=== PATIENT | female | born 1990 | race Caucasian/White ===

== ENCOUNTER 2021-08-10 12:29 | Outpatient (CLI) | payer OTHER, SELFPAY ==
--- NOTE | ~2021-08-10 | US_ITS ---
EXAMINATION: US OB <= 14 weeks fetus DATE: 08/10/2021 13:28 INDICATION: Gestational dating TECHNIQUE: Real-time transabdominal obstetric ultrasound. FINDINGS: No prior studies for comparison. The uterus measures 8.4 x 5.3 x 5 cm. There is an intrauterine gestational sac, with pole ident ified. The crown rump length measures 0.88 cm, which correlates with a estimated gestational age of 6 weeks 6 days. heart tones are identified measuring 124 BPM. Right ovary within normal limit s. Left ovary not visualized. No free fluid in the pelvic cul-de-sac. IMPRESSION: 1. SL IUP with an EGA of 6 weeks, 6 days (EDC by current ultrasound of 03/30/2022). Reviewed, dictated and finalized at location A. MS INVESTIGATOR IMPRESSION: 1. SL IUP with an EGA of 6 weeks, 6 days (EDC by current ultrasound of 2).
== END 2021-08-10 12:30 | disposition home or self-care (01) ==
PROVIDERS: PCP Family Medicine; Visit Provider Student in an Organized Health Care Education/Training Program
DX: Z34.91 Encounter for supervision of normal pregnancy, unspecified, first trimester (principal); Z3A.01 Less than 8 weeks gestation of pregnancy
CPT/HCPCS: 76801

== ENCOUNTER 2021-10-01 08:16 | Outpatient (CLI) | payer OTHER, SELFPAY ==
[2021-10-01 09:20] LABS: Basophils Percent Auto 0.4 % (0.2-1.2); Eosinophils Absolute Auto 0.1 K/mm3 (0-0.3); Eosinophils Percent Auto 0.8 % (0-4.4); Hematocrit 35.3 % (37.0-47.0); Hemoglobin 12.1 g/dL (12.0-15.0); Immature Granulocyte Absolute 0.02 K/mm3 (0.00-0.031); Immature Granulocyte Percent A 0.2 % (0-0.5); Lymphocytes Absolute Auto 1.77 K/mm3 (0.9-3.2); Lymphocytes Percent Auto 21.1 % (18.3-44.2); Mean Corpuscular HGB Conc 34.3 g/dl (32-36); Mean Corpuscular Hemoglobin 29.7 pg (26-34); Mean Corpuscular Volume 86.5 fl (80-100); Mean Platelet Volume 8.6 fl (7.4-10.4); Monocytes Absolute Auto 0.7 K/mm3 (0.1-0.6); Monocytes Percent Auto 8.6 % (2.6-8.5); Neutrophils Absolute Auto 5.8 K/mm3 (1.3-6.7); Neutrophils Percent Auto 68.9 % (45.5-73.1); Platelet Count Result 265 k/mm3 (150-375); Red Blood Count 4.08 M/mm3 (4.2-5.4); Red Cell Distribution Width 12.2 % (11.5-14.5); White Blood Count 8.4 K/mm3 (4.5-10.0)
[2021-10-01 09:31] LABS: HIV 1/2 Ab P24 Ag Result Negative (Negative)
[2021-10-01 09:54] LABS: Add Urine Microscopic? YES; Amorphous Sediment Urine Moderate; Appearance Urine Cloudy (Clear); Bacteria Urine Trace /hpf; Bilirubin Urine Negative (Negative); Blood Urine Negative (Negative); Color Urine Yellow (Yellow); Glucose Urine UA Negative (Negative); Ketones Urine Negative (Negative); Leukocyte Esterase Ur Negative LEU/UL (NEGATIVE); Nitrate Urine Negative (Negative); Protein Urine Negative (Negative); Specific Grav Ur 1.015 (1.001-1.035); Squamous Epithelial Cell Urine Few /hpf (Few); Urobilinogen Urine Negative mg/dL (<2.0)
[2021-10-01 09:55] LABS: Hepatitis B Surface Antigen Negative (Negative)
[2021-10-01 09:56] LABS: Hepatitis C Virus Antibody Negative (Negative)
[2021-10-03 07:21] LABS: Rapid Plasma Reagin Non-Reactive (NonReactive)
[2021-10-06 12:07] LABS: Hemoglobin 12.2 g/dL (11.7-15.5); MCH 29.7 pg (27.0-33.0); MCV 87.6 fL (80.0-100.0); RDW 13.1 % (11.0-15.0); Red Blood Cell Count 4.11 Mill/uL (3.80-5.10)
== END 2021-10-01 08:17 | disposition home or self-care (01) ==
LOC: ANHLAB 08:17
PROVIDERS: PCP Family Medicine; Visit Provider Student in an Organized Health Care Education/Training Program
DX: Z34.90 Encounter for supervision of normal pregnancy, unspecified, unspecified trimester (principal); Z3A.00 Weeks of gestation of pregnancy not specified
CPT/HCPCS: 36415; 81001; 82306; 83021; 84443; 85025; 86592; 86703; 86762; 86787; 86803; 86850; 86900; 86901; 87086; 87088; 87340; G0432

== ENCOUNTER 2021-12-26 15:49 | Outpatient (CLI) | payer OTHER, SELFPAY ==
[2021-12-26 17:25] LABS: Basophils Percent Auto 0.2 % (0.2-1.2); Eosinophils Absolute Auto 0.1 K/mm3 (0-0.3); Eosinophils Percent Auto 0.9 % (0-4.4); Hemoglobin 10.9 g/dL (12.0-15.0); Immature Granulocyte Absolute 0.04 K/mm3 (0.00-0.031); Immature Granulocyte Percent A 0.3 % (0-0.5); Lymphocytes Absolute Auto 2.37 K/mm3 (0.9-3.2); Lymphocytes Percent Auto 18.4 % (18.3-44.2); Mean Corpuscular Hemoglobin 29.5 pg (26-34); Mean Corpuscular Volume 89.2 fl (80-100); Mean Platelet Volume 8.8 fl (7.4-10.4); Monocytes Absolute Auto 1.2 K/mm3 (0.1-0.6); Neutrophils Absolute Auto 9.2 K/mm3 (1.3-6.7); Neutrophils Percent Auto 71.2 % (45.5-73.1); Platelet Count Result 255 k/mm3 (150-375); Red Cell Distribution Width 12.2 % (11.5-14.5); White Blood Count 12.9 K/mm3 (4.5-10.0)
[2021-12-26 17:43] LABS: Glucose 1 Hour PP 50gm Dose 123 mg/dL
== END 2021-12-26 15:50 | disposition home or self-care (01) ==
LOC: ANHLAB 15:50
PROVIDERS: PCP Family Medicine; Visit Provider Student in an Organized Health Care Education/Training Program
DX: Z34.02 Encounter for supervision of normal first pregnancy, second trimester (principal); Z3A.00 Weeks of gestation of pregnancy not specified
CPT/HCPCS: 36415; 82947; 85025

== ENCOUNTER 2022-02-09 10:32 | Outpatient (CLI) | payer OTHER, SELFPAY ==
[2022-02-09 10:45] LABS: Basophils Percent Auto 0.3 % (0.2-1.2); Eosinophils Absolute Auto 0.1 K/mm3 (0-0.3); Eosinophils Percent Auto 1.1 % (0-4.4); Hematocrit 34.9 % (37.0-47.0); Hemoglobin 11.5 g/dL (12.0-15.0); Immature Granulocyte Absolute 0.04 K/mm3 (0.00-0.031); Immature Granulocyte Percent A 0.3 % (0-0.5); Lymphocytes Absolute Auto 1.99 K/mm3 (0.9-3.2); Mean Corpuscular Volume 88.1 fl (80-100); Mean Platelet Volume 8.7 fl (7.4-10.4); Monocytes Absolute Auto 0.9 K/mm3 (0.1-0.6); Monocytes Percent Auto 7.7 % (2.6-8.5); Neutrophils Absolute Auto 8.6 K/mm3 (1.3-6.7); Neutrophils Percent Auto 73.6 % (45.5-73.1); Platelet Count Result 255 k/mm3 (150-375); Red Blood Count 3.96 M/mm3 (4.2-5.4); Red Cell Distribution Width 12.6 % (11.5-14.5); White Blood Count 11.7 K/mm3 (4.5-10.0)
[2022-02-09 11:36] LABS: HIV 1/2 Ab P24 Ag Result Negative (Negative)
[2022-02-10 07:12] LABS: Rapid Plasma Reagin Non-Reactive (NonReactive)
== END 2022-02-09 10:33 | disposition home or self-care (01) ==
LOC: ANHLAB 10:35
PROVIDERS: PCP Family Medicine; Visit Provider Student in an Organized Health Care Education/Training Program
DX: Z34.03 Encounter for supervision of normal first pregnancy, third trimester (principal); Z3A.00 Weeks of gestation of pregnancy not specified
CPT/HCPCS: 36415; 85025; 86592; 86703; G0432

== ENCOUNTER 2022-03-20 17:55 | Inpatient (IN) | payer OTHER, SELFPAY ==
[2022-03-20] VITALS (29 sets, daily range): BP systolic 104–138; BP diastolic 66–98; PULSE 71–99; O2SAT 99–100; BMI 27.1
[2022-03-20 19:09] LABS: Basophils Percent Auto 0.3 % (0.2-1.2); Eosinophils Absolute Auto 0.2 K/mm3 (0-0.3); Eosinophils Percent Auto 1.4 % (0-4.4); Hematocrit 34.3 % (37.0-47.0); Hemoglobin 11.3 g/dL (12.0-15.0); Immature Granulocyte Absolute 0.05 K/mm3 (0.00-0.031); Immature Granulocyte Percent A 0.4 % (0-0.5); Lymphocytes Absolute Auto 1.78 K/mm3 (0.9-3.2); Lymphocytes Percent Auto 14.7 % (18.3-44.2); Mean Corpuscular HGB Conc 32.9 g/dl (32-36); Mean Corpuscular Hemoglobin 28.8 pg (26-34); Mean Corpuscular Volume 87.3 fl (80-100); Monocytes Percent Auto 8.1 % (2.6-8.5); Neutrophils Absolute Auto 9.1 K/mm3 (1.3-6.7); Neutrophils Percent Auto 75.1 % (45.5-73.1); Platelet Count Result 281 k/mm3 (150-375); Red Blood Count 3.93 M/mm3 (4.2-5.4); Red Cell Distribution Width 12.6 % (11.5-14.5); White Blood Count 12.1 K/mm3 (4.5-10.0)
--- NOTE | 2022-03-20 19:13 | WPDANESEPP ---
Anes - Eval Pre Procedure Procedure: labor epidural Date/Time: 03/20/22 19:13 Surgeon: vivek Pre Op Diagnosis: Labor Patient Data Age: 31 Gender: F Height: Weight: Last Vital Signs Pulse 96 03/20/22 19:00 BP 125/89 03/20/22 19:00 Allergies Allergy/AdvReac Type Severity Reaction Status Date / Time No Known Allergies Allergy Unknown Verified 03/16/22 10:17 Home Medications Medication Instructions Recorded Confirmed Type prenat.vits,nikky,uca-shvc-zpdpp 1 tablet PO DAILY 08/03/21 03/16/22 History Laboratory Tests 03/20/22 03/20/22 19:04 19:04 WBC Pending RBC Pending Hgb Pending Hct Pending MCV Pending MCH Pending MCHC Pending RDW Pending Plt Count Pending MPV Pending Immature Gran % (Auto) Pending Neut % (Auto) Pending Lymph % (Auto) Pending [place] % (Auto) Pending Eos % (Auto) Pending Baso % (Auto) Pending Lymph # (Auto) Pending [place] # (Auto) Pending Eos # (Auto) Pending Baso # (Auto) Pending Abs Immat Gran (auto) Pending Absolute Neuts (auto) Pending Absolute Nucleated RBC Pending Nucleated RBC % Pending RPR Pending Patient hx anesthesia problems: none Family hx anesthesia problems: none Results Review: All pre-operative results and documents have been reviewed as part of the pre-operative evaluation. [facility] Family History Family History Grandparent Parkinson disease Social History Social History Smoking status: Never smoker Alcohol intake: former Alcohol use details: Not since Substance use: never Spiritual care concerns: No Exam Day of Procedure 03/20/22 19:13
--- NOTE | 2022-03-20 20:13 | LDADM ---
This patient, Mary Carmona, was admitted to Labor/Delivery/Recovery 103 on 03/20/22 at 17:55. Plans for labor, pain management and were discussed with patient. Patient/family oriented to hospital policies and general routines including ID bracelet, bed and alarms, visiting hours, pain management, procedures, bathroom and other care routines, personal items, smoking policy, room service/diet and guest tray routines, infant security routines, and visiting hours. Patient/Family are encouraged to report perceived risks to care and to ask questions if they do not understand what they are told or what they should do. See OBIX for further documentation.
[2022-03-20] MEDS: OXYTOCIN 30 UNITS/NS 500 ML 30 UNITS/500 ML BAG IV CONT (22:27)
[2022-03-20] MEDS: LACTATED RINGERS 1,000 ML 125 ML IV CONT (22:27)
[2022-03-21] VITALS (190 sets, daily range): BP systolic 56–156; BP diastolic 40–141; PULSE 63–173; RESP 16; TEMP 36.4–37.1; O2SAT 89–100
[2022-03-21] MEDS: LACTATED RINGERS 1,000 ML 125 ML IV CONT ×4 (00:28→15:06)
[2022-03-21] MEDS: SODIUM CHLORIDE 0.9% IV 300 ML 600 ML I-UTERINE (00:51)
[2022-03-21 06:12] LABS: Rapid Plasma Reagin Non-Reactive (NonReactive)
[2022-03-21] MEDS: TERBUTALINE SULFATE 1 MG/ML VIAL 0.25 MG SUB-Q (06:46)
--- NOTE | 2022-03-21 10:47 | PM.IMHP ---
H&P: HPI History of Present Illness Date/Time: 03/21/22 10:47 Chief Complaint: Leakage of fluid Narrative: Patient is a 31-year-old LMP 06/22/2021 currently 38 weeks 6 days gestation with JACKSON 03/29/2022 who presented to Labor and delivery with complaints of leakage of fluid. Patient is dated by LMP consistent with ultrasound on 08/10/2021 at 6 weeks gestation. Patient reported large gush of fluid last night at approx. 5:00 p.m. She also reported occasional contractions. Denied any vaginal bleeding. Reports good movement. Patient was grossly ruptured upon presentation to L&D. Decision made to admit patient. Review of Systems Review of Systems: All systems reviewed & are unremarkable except as noted in HPI and below Constitutional: Constitutional: Reports as per HPI and Reports no additional constitutional complaints Eyes: Eyes: Reports as per HPI and Reports no additional eye complaints ENT: Reports system reviewed and no additional complaints, except as documented and Reports as per HPI Cardiovascular: Cardiovascular: Reports as per HPI and Reports no additional cardiovascular complaints Respiratory: Respiratory: Reports as per HPI and Reports no additional respiratory complaints Gastrointestinal: Gastrointestinal: Reports as per HPI and Reports no additional gastrointestinal complaints Genitourinary: Genitourinary: Reports no additional female genitourinary complaints and Reports as per HPI Musculoskeletal: Musculoskeletal: Reports no additional musculoskeletal complaints and Reports as per HPI Integumentary/Breasts: Skin/Breast: Reports system reviewed and no additional complaints, except as docu and Reports as per HPI Neurologic: Reports system reviewed and no additional complaints, except as documented and Reports as per HPI Psychiatric: Psychiatric: Reports no additional psychiatric complaints and Reports as per HPI Endocrine: Endocrine: Reports no additional endocrine complaints and Reports as per HPI Hematologic/Lymphatic: Hematologic/Lymphatic: Reports no additional hematologic/lymphatic complaints and Reports as per HPI Allergic/Immunologic: Allergic/Immunologic: Reports no additional allergic/immunologic complaints and Reports as per HPI [facility] Family History Family History Grandparent Parkinson disease Social History Social History Smoking status: Never smoker Second hand tobacco smoke exposure: No Alcohol intake: former Alcohol use details: Not since Substance use: never Spiritual care concerns: No Meds Home Medications and Allergies Home Medications Medication Instructions Recorded Confirmed Type prenat.vits,nikky,vop-hyef-dgdln 1 tablet PO DAILY 08/03/21 03/21/22 History Allergies Allergy/AdvReac Type Severity Reaction Status Date / Time No Known Allergies Allergy Unknown Verified 03/16/22 10:17 Vital Signs Vital Signs - 24 hr 03/20/22 18:47 03/20/22 19:00 03/20/22 19:23 Temperature Pulse Rate 79 96 79 Blood Pressure 118/89 125/89 126/82 Pulse Oximetry Oxygen Delivery 03/20/22 22:27 03/20/22 22:31 03/20/22 23:00 Temperature Pulse Rate 88 89 86 Blood Pressure 130/83 123/66 138/91 H Pulse Oximetry Oxygen Delivery 03/20/22 23:07 03/20/22 23:12 03/20/22 23:17 Temperature Pulse Rate 92 Blood Pressure 126/95 H Pulse Oximetry 99 100 100 Oxygen Delivery 03/20/22 23:18 03/20/22 23:19 03/20/22 23:22 Temperature Pulse Rate 79 73 Blood Pressure 137/98 H 128/85 Pulse Oximetry 100 Oxygen Delivery 03/20/22 23:23 03/20/22 23:25 03/20/22 23:27 Temperature Pulse Rate 77 89 83 Blood Pressure 135/91 H 121/84 123/81 Pulse Oximetry 100 Oxygen Delivery 03/20/22 23:30 03/20/22 23:32 03/20/22 23:33 Temperature Pulse Rate 81 82 Blood Pressure 122/67 120/74 Pulse Oximetry
--- NOTE | 2022-03-21 11:18 | WPDHPUPDATE1 ---
History and Physical Update Update Date/Time: 03/21/22 11:18 History and Physical has been reviewed, including an updated exam of the patient. There are NO changes in the patient's condition. Risks, benefits, and alternatives have been discussed and questions answered. Patient agrees to proceed with procedure.
[2022-03-21] MEDS: AMPICILLIN 2 GM/NS 100 ML 2 GM/100 ML BAG IVPB (12:02)
--- NOTE | 2022-03-21 14:16 | PM.OBPNLAB ---
Pain Control Date/time seen: 03/21/22 14:16 Comments: Doing well. Comfortable. SVE /-1. EFM currently category 1. [place] shows contractions q2-3 mins. Continue to titrate pitocin. Continue EFM and toco.
[2022-03-21] MEDS: AMPICILLIN 1 GM/NS 50 ML 1 GM/50 ML BAG IVPB (16:05)
--- NOTE | 2022-03-21 16:57 | P.PCNOB_ITS ---
OB - Delivery Note Procedure Delivery date: 03/21/22 Procedure: Patient is a 31-year-old now currently 38 weeks 6 days gestation who presented to labor and delivery on the evening of 03/20/2022 with complaints of leakage of fluid. Patient reported leakage of clear fluid at 5:00 p.m. Upon presentation, to labor and delivery, patient was noted to be grossly ruptured. Patient was admitted to labor and delivery. Induction of labor was started with Pitocin. An IUPC was placed for enhanced monitoring. An amnioinfusion bolus was administered due to intermittent category 2 tracing. Pitocin was slowly titrated throughout evening and morning. Pitocin was adjusted periodically due to tracing. Patient, however, continued to make progressive cervical change. Patient became uncomfortable and requested an epidural for pain management which was placed without difficulty. Pitocin was continued. Antibiotics were started during the afternoon for prolonged rupture of membranes. Patient received 2 doses of antibiotics total. Patient was noted to be fully dilated at 4:20 p.m. Patient was encouraged to push and found be pushing well. She was prepped and draped for delivery. At 4:33 p.m., patient delivered infant head atraumatically without difficulty in KARLA presentation. Occiput restituted to maternal left side. A tight nuchal cord was noted, however, unable to be reduced. With subsequent push, the infant's neck, shoulders, and rest of body delivered without difficulty. Nuchal cord was reduced. Infant appeared floppy. Cord was quickly clamped and cut. Infant was taken to warmer where care was assumed by awaiting nursing staff. A segment of cord was collected for cord gases. Cord blood was collected. The placenta was delivered spontaneously and intact. Uterine fundus was noted to be firm with massage. On inspection, a left labial laceration was noted as well as a superficial right labial laceration. Left labial laceration required repair with 3-0 Vicryl in the usual fashion. Right labial laceration was hemostatic and did not require repair. Estimated blood loss for entire deliveries 100 cc. was a live-born female infant, apgars 2 and 9, weighing 5 lb 12 oz. Intrapartal Events: Decelerations Induction method: Per Pitocin Protocol Delivery monitor: External FHT, External Uterine and Internal Uterine Route of delivery: Laceration Description: Labial (left and right ) Delivery repair: vicryl (3-0 vicryl) Specimen: Yes (placenta and cord, cord blood, and cord gases) Quantitative Blood Loss (ml): 100 Anesthesia type: Epidural Disposition: Floor Complications: No immediate complications [place] Baby Date of : 03/21/22 Time of : 16:33 Weeks of gestation at delivery: 38 (38.6) gender: Female Weight (pounds): 5 Weight (ounces): 12 presentation: vertex position: Left Occiput Anterior Placenta delivery description: Spontaneous Cord Vessel Description: 3 Vessels, Nuchal Cord and Tight score one minute: 2 score five minutes: 9 AMG Delivery Billing Delivery Delivery: Delivery Charge
[2022-03-21] MEDS: OXYTOCIN 30 UNITS/NS 500 ML 30 UNITS/500 ML BAG 125 UNITS IV CONT (17:09)
[2022-03-21] MEDS: ACETAMINOPHEN 325 MG TABLET 650 MG PO (19:15)
[2022-03-21] MEDS: WITCH HAZEL 40 PADS 1 PAD TOPICAL (19:18)
[2022-03-21] MEDS: BENZOCAINE 20% AER SPR (*SP) 56 GM CAN 1 SPRAY TOPICAL (19:18)
[2022-03-22 04:00] VITALS: BP 114/74; PULSE 88; RESP 16; TEMP 36.8; O2SAT 98
[2022-03-22 06:03] LABS: Hematocrit 31.4 % (37.0-47.0); Hemoglobin 10.4 g/dL (12.0-15.0)
--- NOTE | 2022-03-22 07:02 | PC.NURSE ---
Patient transferred to post room #277 via ( W/C ). Baby pushed by Dad. Support person present. Oriented to unit, room, information board, rooming in, admission packet and security measures. Patient verbalizes understanding.
[2022-03-22 07:50] VITALS: BP 112/74; PULSE 100; RESP 18; TEMP 37.1; O2SAT 100
[2022-03-22 08:00] VITALS: PULSE 100; RESP 18; O2SAT 100
[2022-03-22] MEDS: IBUPROFEN 600 MG TABLET PO (10:45)
[2022-03-22] MEDS: DOCUSATE SODIUM 100 MG CAPSULE PO (10:46)
[2022-03-22] MEDS: MULTIVIT/MIN/PREN/FOL AC/IRON TABLET 1 TAB PO (10:46)
--- NOTE | 2022-03-22 11:15 | PM.OBPNVD ---
OB - PN: Subj Subjective Date/time seen: 03/22/22 08:30 Patient doing well. Minimal cramping/pain well controlled medication. Minimal lochia. Ambulating without difficulty. Voiding well. OB - PN: Obj Data Labs CBC & Chem 7: 03/22/22 04:50 Labs: Laboratory Results - last 24 hr 03/22/22 04:50 Hgb 10.4 L Hct 31.4 L OB - PN A/P Assessment and Plan (1) Normal spontaneous vaginal delivery: Code(s): O80 - Encounter for full-term uncomplicated delivery Status: Acute Assessment and Plan: PPD#1 doing well continue routine care Time Spent With Patient Time: Total time spent is greater than 50% in coordination of care (as documented) at patient's floor/unit and/or counseling patient: Exam Const: General: cooperative, healthy appearing, comfortable and no acute distress GI: Inspection: non-distended GI Palp: Yes Soft to palpation and No Tenderness to palpation present (GI) Other: fundus firm below umbilicus Extrem: Right lower extremity: no edema Left lower extremity: no edema Other: no calf tenderness
--- NOTE | 2022-03-22 12:13 | PC.NURSE ---
[id number] Introductions were made, then consulted with patient to assess needs related to . Mother led the conversation with her?plans to feed?her infant and the?experience so far with concerns of baby not waking up to breastfeed. Resources provided for inpatient and outpatient services using a resource guide and mom/baby guide. With mother's request RN assisted with stimulating infant. Mother works well with her with encouragement and education. Encouraged understanding of the benefits of skin to skin (unwrapping infant and placing vertically on her chest), responsive feeding and how to watch for early feeding signs, frequency of feeding on demand about every 8-12 times in 24 hours (every 2-3 hours), milk production, duration of feeding, signs of adequate intake/output and how to record on the feeding sheet. Reviewed positioning and ear, shoulder, hip alignment, supporting the breast, asymmetrical latch (off-center), and leading with the chin with a big open side gape. Infant latched optimally to the left breast in cross cradle position. Education given to mother of how to visualize suck/swallow ratios and drinking at the breast. Infant was able to maintain latch without discomfort to mother. Nipple care reviewed with optimal latch and good positioning. Reviewed good handwashing when or touching the breast/nipples to prevent infection. Resources used to facilitate learning were used with the visual handouts/ tool/mom and baby guide. Mother voiced understanding of responsive feedings, stimulating with skin to skin, hand expressed colostrum, touch, talking to infant to encourage if it has been 2 -3 hours since the start of the last , to call if infant does not latch or there is discomfort with . Reported to primary RN.
--- NOTE | 2022-03-22 12:19 | PC.NURSE ---
[id number] Reviewed working with infant, breast, nipples and how to protect the nipples with an optimal deep latch, good positioning, and good hand washing. Encouraged understanding the benefits of skin to skin, responding to feeding cues, frequencies of feeding 8-12 times in 24 hours (approximately 2-3 hours), duration of feedings, milk production, intake/output feeding sheet and signs of adequate intake encouraging swallowing at the breast. Reviewed positioning and alignment, supporting breast, off-centered (asymmetrical latch) and leading with the chin with big open wide gape. latched optimally to the right breast in football position. Education given to mother of how to visualize suck/swallow ratios and drinking at the breast. Infant was able to maintain latch without discomfort to mother. Mother voiced understanding of the education shared, calling for assistance if the does not latch or if there is discomfort with . Reported to the primary RN.
[2022-03-22 12:20] VITALS: BP 106/65; PULSE 86; RESP 18; TEMP 36.8; O2SAT 98
--- NOTE | 2022-03-22 12:21 | PC.NURSE ---
[phone] Consulted with patient to assess needs related to after being called to the room. Mother led conversation with her experience with feeding baby so far. Mother works well with her with encouragement. Reviewed working with , breast, nipples and how to protect the nipples with an optimal deep latch, good positioning, and good hand washing. Encouraged understanding the benefits of skin to skin, responding to feeding cues, frequencies of feeding 8-12 times in 24 hours (approximately 2-3 hours), duration of feedings, milk production, intake/output feeding sheet and signs of adequate intake encouraging swallowing at the breast. Reviewed positioning and alignment, supporting breast, off-centered (asymmetrical latch) and leading with the chin with big open wide gape. Infant latched optimally to the right breast in football position. Education given to mother of how to visualize suck/swallow ratios and drinking at the breast. Infant was able to maintain latch without discomfort to mother. Mother demonstrates how to stimulate to actively breastfeed. Mother voiced understanding of the education shared, calling for assistance if the does not latch or if there is discomfort with . Reported to the primary RN.
--- NOTE | 2022-03-22 13:19 | WPDANLDPN2 ---
Anes-Prog Note L&D Date/Time: 03/22/22 13:19 Comfortable throughout: labor and delivery Neuraxial method: epidural Epidural/Spinal procedure site: clean & non-tender Neuro status: Neuro function grossly intact. Cardiovascular status: normal Respiratory status: normal Airway patency: baseline Mental status: baseline Post-Op hydration status: normal Vital Signs: Last Vital Signs Temp 98.3 F 03/22/22 12:20 Pulse 86 03/22/22 12:20 Resp 18 03/22/22 12:20 BP 106/65 03/22/22 12:20 Pulse Ox 98 03/22/22 12:20 O2 Del Method Room Air 03/21/22 20:15 Pain score (VAS): 110 Post-procedural complaints: none Patient feedback: Patient satisfied with anesthetic care.
--- NOTE | 2022-03-22 15:58 | PC.NURSE ---
[id number] consulted with mother to see how is going. Mother verbalizes she was able to independently latch with no pain at 1330 and was swallowing. Mother has skin to skin encouraging to wake and breastfeed. had a large stool at the beginning stages of transitional appearance. is sleepy and reluctant with rare attempts to latch. Infant is skin to skin with mother in laid-back position working with infant. RN will check-in with mother closer to 1630.
[2022-03-22 16:30] VITALS: BP 110/73; PULSE 88; RESP 16; TEMP 37; O2SAT 100
--- NOTE | 2022-03-22 16:57 | PC.NURSE ---
[id number] Consulted with mother. Parents are working with infant to wake and feed. Infant latched to the right breast and sucked a few times but is sleepy and reluctant. Mother has skin to skin and is confident to work with . 1655 - Infant is in the nursery with primary RN for 24 hour testing.
[2022-03-22 20:45] VITALS: BP 129/88; PULSE 97; RESP 16; RESP 18; TEMP 36.8; O2SAT 100
[2022-03-23 07:45] VITALS: BP 119/81; PULSE 76; RESP 16; TEMP 36.9; O2SAT 100
[2022-03-23 08:00] VITALS: PULSE 76; RESP 16; O2SAT 100
--- NOTE | 2022-03-23 08:37 | PM.OBPNVD ---
OB - PN: Subj Subjective Date/time seen: 03/23/22 08:37 Patient doing well. Minimal pain/cramping well controlled with medication. Minimal lochia. Ambulating without difficulty. Voiding well. OB - PN: Obj Data Labs CBC & Chem 7: 03/22/22 04:50 OB - PN A/P Assessment and Plan (1) Normal spontaneous vaginal delivery: Code(s): O80 - Encounter for full-term uncomplicated delivery Status: Acute Assessment and Plan: PPD#2 doing well continue routine care dc home in stable condition emergency precautions reviewed f/u in office in 4-6 weeks Time Spent With Patient Time: Total time spent is greater than 50% in coordination of care (as documented) at patient's floor/unit and/or counseling patient: Exam Const: General: cooperative, healthy appearing, comfortable and no acute distress GI: Inspection: non-distended GI Palp: Yes Soft to palpation and No Tenderness to palpation present (GI) Extrem: Right lower extremity: no edema Left lower extremity: no edema Other: no calf tenderness
--- NOTE | 2022-03-23 08:41 | PM.OBDSVD ---
DS: Admitting Diagnosis Discharge Date 03/23/22 Admitting Diagnosis IUP at 38w6d PROM OB - DS: Summary OB Procedures : None OB Procedures Intrapartum: Spontaneous Vag Delivery OB Procedures: : None Time Spent with Patient Time attestation: Total time spent providing and/or coordinating discharge services: DS: Data Data Completed and Pending Pending studies at discharge: Pending at discharge 03/23/22 04:37 Surgical [PTH] Routine Discharge Plan Discharge Attending physician on discharge: Donita Carmona Discharging Clinician: Donita Carmona Anticipated Discharge Date/Time: 03/23/22 12:00 Patient Disposition: Home, Self-Care Activity: as tolerated Diet: regular Discharge Instructions: Call office ([phone]) to schedule a visit in 4-6 weeks. You may take Ibuprofen 600mg every 6 hours as needed for pain. Pain medication may make you constipated. It may be helpful to take an fylj-fhj-tuvzqei stool softener, such as Colace and/or Senokot, along with the pain medication to help lessen constipation. Call office or go to ED for pain not controlled with medication, headache, chest pain, shortness of breath, fever, chills, persistent nausea or vomiting, severe abdominal pain, heavy vaginal bleeding >2 pads/hour, foul vaginal discharge or odor, or problems with your breasts. Patient Instructions: Antibiotic Form Stand Alone Forms: General Discharge Information Follow-up/Referrals: Donita Carmona MD [Physician] - Discharge Medications: Continued prenat.vits,nikky,fok-jrdw-hfkyf Tablet 1 tablet PO DAILY Date of admission: 03/20/22 17:55 Primary Care Provider: DaltonShannen Admitting Provider: Donita Carmona Attending physician on admission: Donita Carmona Condition: Stable
--- NOTE | 2022-03-23 09:45 | PC.NURSE ---
0930 - Infant brought to parents from the 1st floor nursery. Bands compared, Barrel Maker is updating parents while RN changes a large meconium stool. Assisted mother with good positioning in a chair using football hold and latched optimally to the left breast. Reviewed understanding of watching infant for good suck/swallow ratios. Parents voiced understanding or calling for assistance if infant doesn't latch, difficulty waking to breastfeed, or if there is pain with nursing. Reported to primary RN.
[2022-03-23] MEDS: DOCUSATE SODIUM 100 MG CAPSULE PO (10:07)
[2022-03-23] MEDS: MULTIVIT/MIN/PREN/FOL AC/IRON TABLET 1 TAB PO (10:07)
[2022-03-23] MEDS: IBUPROFEN 600 MG TABLET PO (10:07)
--- NOTE | 2022-03-23 16:36 | PC.NURSE ---
Patient viewed the discharge video Mother & Baby Care, The First Two Weeks . Patient was given the opportunity and encouraged to ask questions. Patient verbalized understanding of information shared and has been given the mother/baby guide for home reference.
[2022-03-24 15:48] VITALS: BP 123/81; PULSE 88; RESP 20; TEMP 36.9; O2SAT 99
== END 2022-03-23 16:38 | disposition home or self-care (01) | DRG 807 ==
LOC: ANHLDR 18:40 → ANHOB2 03-21 19:55
PROVIDERS: Admitting Provider Student in an Organized Health Care Education/Training Program; PCP Family Medicine; Visit Provider Student in an Organized Health Care Education/Training Program
DX: O42.02 Full-term premature rupture of membranes, onset of labor within 24 hours of rupture (principal); Z37.0 Single live birth; Z3A.38 38 weeks gestation of pregnancy; O36.8330 Maternal care for abnormalities of the fetal heart rate or rhythm, third trimester, not applicable or unspecified; O70.0 First degree perineal laceration during delivery; O69.1XX0 Labor and delivery complicated by cord around neck, with compression, not applicable or unspecified
CPT/HCPCS: 36415; 84112; 85014; 85018; 85025; 86592; 86850; 86900; 86901; 88307; A9270; J0290; J2590; J2795; J3105; J7030; J7120

== ENCOUNTER 2023-11-19 10:31 | Outpatient (CLI) | payer OTHER, SELFPAY ==
[2023-11-19 11:47] LABS: Basophils Percent Auto 0.4 % (0.2-1.2); Eosinophils Absolute Auto 0.1 K/mm3 (0-0.3); Eosinophils Percent Auto 0.9 % (0-4.4); Hematocrit 42.4 % (37.0-47.0); Hemoglobin 13.8 g/dL (12.0-15.0); Immature Granulocyte Absolute 0.02 K/mm3 (0.00-0.031); Immature Granulocyte Percent A 0.3 % (0-0.5); Lymphocytes Absolute Auto 1.61 K/mm3 (0.9-3.2); Mean Corpuscular HGB Conc 32.5 g/dl (32-36); Mean Corpuscular Hemoglobin 28.8 pg (26-34); Mean Corpuscular Volume 88.3 fl (80-100); Mean Platelet Volume 9.5 fl (7.4-10.4); Monocytes Absolute Auto 0.6 K/mm3 (0.1-0.6); Monocytes Percent Auto 8.8 % (2.6-8.5); Neutrophils Absolute Auto 4.4 K/mm3 (1.3-6.7); Neutrophils Percent Auto 65.6 % (45.5-73.1); Platelet Count Result 277 k/mm3 (150-375); Red Cell Distribution Width 12.3 % (11.5-14.5); White Blood Count 6.7 K/mm3 (4.5-10.0)
[2023-11-19 11:59] LABS: Alanine Aminotransferase 17 U/L (6-35); Albumin Level 4.3 g/dL (3.5-5.1); Alkaline Phosphatase 41 U/L (38-126); Anion Gap 6 mmol/L (4-12); Aspartate Amino Transferase 23 U/L (14-36); Bilirubin,Total 1.9 mg/dL (0.2-1.3); Blood Urea Nitrogen 12 mg/dL (7-17); Calcium 9.1 mg/dL (8.4-10.2); Carbon Dioxide 25 mmol/L (22-30); Chloride 106 mmol/L (98-107); Cholesterol 173 mg/dL (0-200); Estimated Glomerular Filt Rate > 60; Glucose 84 mg/dL (65-110); HDL Direct 62 mg/dL; Sodium 137 mmol/L (137-145); Triglycerides 79 mg/dL (<150)
[2023-11-19 12:10] LABS: LDL Cholesterol Direct 97 mg/dL
[2023-11-19 12:20] LABS: Vitamin D 25 Hydroxy 61.4 ng/mL
== END 2023-11-19 10:32 | disposition home or self-care (01) ==
LOC: ANHLAB 10:32
PROVIDERS: PCP Family Medicine; Visit Provider Registered Nurse
DX: Z79.899 Other long term (current) drug therapy (principal)
CPT/HCPCS: 36415; 80053; 80061; 82306; 84443; 85025